=== PATIENT | female | born 1990 | race Two or more races ===

== ENCOUNTER 2021-03-21 05:35 | Inpatient (IN) | payer OTHER ==
[~2021-03-21] VITALS: Ht 157.5 cm; Wt 76.2 kg
[2021-03-21] MEDS ORDERED: PRENATAL TABLE1 EAC1 PO (06:15)
== END 2021-03-24 12:52 | disposition home or self-care (01) | DRG 806 ==
LOC: OB/GYN 05:35 → LDR 05:35 → OB/GYN 03-22 06:40
PROVIDERS: ADMIT Obstetrics & Gynecology; ATTEND Obstetrics & Gynecology
PROC: 10E0XZZ Delivery of Products of Conception, External Approach (ICD-10-PCS; principal; 2021-03-21)
PROC: 0W8NXZZ Division of Female Perineum, External Approach (ICD-10-PCS; 2021-03-21)
PROC: 4A1HXFZ Monitoring of Products of Conception, Cardiac Rhythm, External Approach (ICD-10-PCS; 2021-03-21)
DX: O48.0 Post-term pregnancy (principal); O99.12 Other diseases of the blood and blood-forming organs and certain disorders involving the immune mechanism complicating childbirth; D69.6 Thrombocytopenia, unspecified; Z37.0 Single live birth; Z3A.40 40 weeks gestation of pregnancy

== ENCOUNTER 2023-05-11 10:28 | Outpatient (CLI) | payer OTHER ==
[~2023-05-11 10:28] MED LIST: PRENATAL TABLE1 EAC1 PO
== END 2023-05-11 10:30 | disposition home or self-care (01) ==
LOC: PRENATAL 10:28
PROVIDERS: ATTEND Obstetrics & Gynecology Maternal & Fetal Medicine
DX: O36.80X0 Pregnancy with inconclusive fetal viability, not applicable or unspecified (principal); Z36.82 Encounter for antenatal screening for nuchal translucency; O34.40 Maternal care for other abnormalities of cervix, unspecified trimester; D68.69 Other thrombophilia; Z3A.11 11 weeks gestation of pregnancy

== ENCOUNTER 2023-07-06 11:10 | Outpatient (CLI) | payer OTHER | END 2023-07-06 11:11 | disposition home or self-care (01) | LOC: PRENATAL 11:10 | PROVIDERS: ATTEND Obstetrics & Gynecology Maternal & Fetal Medicine | DX: O35.9XX0 Maternal care for (suspected) fetal abnormality and damage, unspecified, not applicable or unspecified (principal); O35.3XX0 Maternal care for (suspected) damage to fetus from viral disease in mother, not applicable or unspecified; O44.00 Complete placenta previa NOS or without hemorrhage, unspecified trimester; O99.019 Anemia complicating pregnancy, unspecified trimester; Z3A.19 19 weeks gestation of pregnancy ==

== ENCOUNTER 2023-11-05 11:31 | Outpatient (CLI) | payer OTHER ==
[2023-11-05 12:41] LABS: PH,URINE 6.5 (5.0-8.0); URINE APPEARANCE Cloudy; URINE BILIRRUBIN Negative (NEGATIVE); URINE BLOOD Negative; URINE COLOR Dark Yellow; URINE GLUCOSE Negative (NEGATIVE); URINE LEUKOCYTE Moderate; URINE NITRATE Negative; URINE PROTEIN Trace (NEGATIVE)
[2023-11-05 12:45] LABS: URINE EPITHELIAL CELLS 119.6 uL (0.0-38.8); URINE RBC 17.1 uL (0.0-20.8); URINE WBC 73.1 uL (0.0-23.2)
[2023-11-05 12:46] LABS: HEMATOCRIT 34.7 % (36.0-45.00); MEAN CELL VOLUME 85.5 fL (80.00-100.00); MEAN CORPUSCULAR HEMOGLOBIN 29.6 pg (27.00-32.0); MEAN CORPUSCULAR HGB CONC 34.7 g/dl (32.0-36.0); RED BLOOD COUNT 4.06 M/uL (4.00-6.00); RED CELL DISTRIBUTION WIDTH 13.5 % (11.5-14.5)
[2023-11-05 12:51] LABS: PLATELET COUNT 107 K/uL (150-450)
== END 2023-11-05 15:32 | disposition home or self-care (01) ==
LOC: OBS/DEL 11:31
PROVIDERS: ATTEND Obstetrics & Gynecology
DX: O26.893 Other specified pregnancy related conditions, third trimester (principal); O26.849 Uterine size-date discrepancy, unspecified trimester; O36.8199 Decreased fetal movements, unspecified trimester, other fetus; Z3A.37 37 weeks gestation of pregnancy

== ENCOUNTER 2023-11-26 05:37 | Inpatient (IN) | payer OTHER ==
[~2023-11-26] VITALS: Ht 157.5 cm; Wt 74.8 kg
[2023-11-26] MEDS ORDERED: RINGERS SOLUTION,LACTATED 1,000 ML IV SCH (05:45)
[2023-11-26] MEDS ORDERED: IRON236 MG PO (06:19)
[2023-11-26 06:45] LABS: HEMATOCRIT 36.7 % (36.0-45.00); HEMOGLOBIN 12.9 g/dL (12.0-15.00); MEAN CELL VOLUME 86.1 fL (80.00-100.00); MEAN CORPUSCULAR HEMOGLOBIN 30.2 pg (27.00-32.0); MEAN CORPUSCULAR HGB CONC 35.1 g/dl (32.0-36.0); RED BLOOD COUNT 4.26 M/uL (4.00-6.00); RED CELL DISTRIBUTION WIDTH 13.3 % (11.5-14.5)
[2023-11-26 06:48] LABS: PLATELET COUNT 101 K/uL (150-450)
[2023-11-26 06:54] LABS: URINE APPEARANCE Clear; URINE BILIRRUBIN Negative (NEGATIVE); URINE BLOOD Negative; URINE COLOR Yellow; URINE GLUCOSE Negative (NEGATIVE); URINE LEUKOCYTE Trace; URINE NITRATE Negative; URINE PROTEIN Negative (NEGATIVE); URINE UROBILINOGEN 0.2 E.U./dl
[2023-11-26 06:55] LABS: URINE BACTERIA 2344.3 uL (0.0-1933); URINE EPITHELIAL CELLS 57.9 uL (0.0-38.8)
[2023-11-26 07:30] LABS: CALCIUM 8.8 mg/dL (8.5-10.1); CREATININE SERUM 0.56 mg/dL (0.55-1.02); GFR 123.92; POTASSIUM 3.86 mEq/L (3.5-5.1)
[2023-11-26] MEDS ORDERED: MISOPROSTOL 25 MCG/4 ML GEL.W.APPL VAG STA (07:51)
[2023-11-26 07:59] LABS: INR < 0.93; PARTIAL THROMBOPLASTIN TIME 29.1 SECONDS (22.0-34.0); PROTHROMBIN TIME 9.4 SECONDS (9.0-11.5)
[2023-11-26] MEDS ORDERED: OXYTOCIN 500 ML IV SCH (12:45)
[2023-11-26] MEDS ORDERED: MORPHINE SULFATE 4 MG/ML VIAL IV STA (15:30)
[2023-11-26] MEDS ORDERED: OXYTOCIN 10 UNITS/ML VIAL IM STA (16:45)
[2023-11-26] MEDS ORDERED: IBUprofen 400 MG TABLET PO PRN (16:45)
[2023-11-26] MEDS ORDERED: ERYTHROMYCIN BASE 1 GM TUBE OP NR (16:45)
[2023-11-26] MEDS ORDERED: CHLORHEXIDINE GLUCONATE 120 ML BOTTLE TOP NR (16:45)
[2023-11-26] MEDS ORDERED: OXYTOCIN 20 UNITS/1000ML RL PIGGYBAG IV ONE (17:30)
[2023-11-26 18:35] LABS: ABG PH 7.321 (7.35-7.45)
[2023-11-26 18:36] LABS: ABG PO2 39.6 mmHg (80-100); BASE EXCESS -7.1 mmol/l; BICARBONATE 18.2 mmol/l (23-25); Tco2 19.3 mmol/l; o2 21 %
[2023-11-26 21:07] LABS: HEMATOCRIT 37.1 % (36.0-45.00); HEMOGLOBIN 12.9 g/dL (12.0-15.00); MEAN CELL VOLUME 85.9 fL (80.00-100.00); MEAN CORPUSCULAR HGB CONC 34.9 g/dl (32.0-36.0); RED BLOOD COUNT 4.32 M/uL (4.00-6.00); RED CELL DISTRIBUTION WIDTH 12.9 % (11.5-14.5)
[2023-11-26 21:08] LABS: PLATELET COUNT 100 K/uL (150-450)
[2023-11-26] MEDS ORDERED: LIDOCAINE HCL 1% 10ML VIAL IJ ONE (23:30)
== END 2023-11-28 13:24 | disposition home or self-care (01) | DRG 807 ==
LOC: LDR 05:37 → OB/GYN 16:31
PROVIDERS: ADMIT Obstetrics & Gynecology; ATTEND Obstetrics & Gynecology
PROC: 10E0XZZ Delivery of Products of Conception, External Approach (ICD-10-PCS; principal; 2023-11-26)
PROC: 0KQM0ZZ Repair Perineum Muscle, Open Approach (ICD-10-PCS; 2023-11-26)
PROC: 4A1HXCZ Monitoring of Products of Conception, Cardiac Rate, External Approach (ICD-10-PCS; 2023-11-26)
PROC: 3E033VJ Introduction of Other Hormone into Peripheral Vein, Percutaneous Approach (ICD-10-PCS; 2023-11-26)
PROC: 3E0P7VZ Introduction of Hormone into Female Reproductive, Via Natural or Artificial Opening (ICD-10-PCS; 2023-11-26)
DX: O70.1 Second degree perineal laceration during delivery (principal); Z37.0 Single live birth; Z3A.40 40 weeks gestation of pregnancy; Z20.822 Contact with and (suspected) exposure to COVID-19